=== PATIENT | female | born 1990 | race Caucasian/White ===

== ENCOUNTER 2016-03-23 12:44 | Emergency (ER) | payer OTHER ==
[~2016-03-23] VITALS: Ht 167.6 cm; Wt 80.0 kg
[2016-03-23 12:50] VITALS: Ht 167.6 cm; Wt 80.0 kg
[2016-03-23] MEDS ORDERED: ALBUTEROL 0.5% (NEB) 2.5 MG/0.5 ML AMP NEB STA (13:47)
[2016-03-23 14:06] LABS: URINE BLOOD (Dip) POC Trace-intact (NEGATIVE)
--- NOTE | 2016-03-23 14:42 | RADRPT ---
PROCEDURE: Chest Radiograph. CLINICAL INDICATION: Cough TECHNIQUE: Single frontal chest radiograph. COMPARISON: None available FINDINGS: The cardiomediastinal silhouette is within normal limits. No infiltrate or effusion is seen. Th e bones are intact. IMPRESSION: 1. Unremarkable chest radiograph. RPTAT: KK .Soy Delgadillo MD, Date Time Electronically viewed and signed by .Soy Delgadillo MD, on 03/23/2016 14:42 .B/
[2016-03-23] MEDS ORDERED: NITR-58 PO (14:54)
[2016-03-23] MEDS ORDERED: BENZ100C70 PO (14:54)
[2016-03-23] MEDS ORDERED: ALBU18HF INHALATION (14:54)
[2016-03-23] MEDS ORDERED: IBUP-1542 PO (14:54)
--- NOTE | 2016-03-23 15:07 | ERD ---
ER Documentation Chief Complaint Date/Time DATE: 03/23/16 TIME: 15:03 Chief Complaint syncopy with fever HPI This is a 25-year-old female presenting to the emergency room stating that she feels like she has a high fever for the past couple days. Patient states that she has cough, congestion. Patient states that yesterday she was in the shower and she felt like she was in the past out, she states that it felt like it was black and she lowered herself. Patient states that when she got out of the shower she fell and states she passed out first couple seconds. Patient denies any nausea, vomiting, lethargy. She denies any current dizziness. Patient states that she has painful urination and cloudy urine today. She denies any hematuria, flank pain. Patient's mother states that she has given her daughter Cipro and Tylenol this morning at 3:00 in the morning because she thought she had a fever. ROS All systems reviewed and are negative except as per history of present illness. Medications Home Meds Active Scripts Albuterol Sulfate* (Ventolin HFA*) 18 Gm Hfa.aer.ad, 2 PUFF INHALATION Q4H, #1 INHALER Prov:ELIZA GALVANC 03/23/16 Benzonatate* (Tessalon Perle*) 100 Mg Capsule, 100 MG PO Q8H Y for COUGH, #14 CAP Prov:ELIZA GALVANC 03/23/16 Nitrofurantoin Monohyd Macrocr* (Macrobid*) 100 Mg Capsr, 100 MG PO BID for 5 Days, CAP Prov:ELIZA GALVANC 03/23/16 Ibuprofen* (Motrin*) 600 Mg Tab, 600 MG PO Q6H Y for PAIN AND OR ELEVATED TEMP, #30 TAB Prov:ELIZA GALVAN PA-C 03/23/16 Allergies Allergies: Coded Allergies: No Known Allergy (Unverified , 03/23/16) PMhx/Soc Medical and Surgical Hx: pt denies Medical Hx, pt denies Surgical Hx Hx Alcohol Use: Yes Hx Substance Use: No Hx Tobacco Use: No Smoking Status: Never smoker Physical Exam Vitals Vital Signs Date Time Temp Pulse Resp B/P Pulse Ox O2 Delivery O2 Flow Rate FiO2 1/12/17 14:38 88 20 96 21 03/23/16 14:09 90 20 96 21 03/23/16 12:50 98.4 90 20 131/68 99 Physical Exam Const: Well-developed well-nourished Head: Atraumatic GENERAL: well-developed/well-nourished, in no apparent distress, non-toxic appearing HENT: NC/AT, bilateral tympanic membrane is normal with good cone of light, nares patent, oropharynx clear without exudates EYES: Conjunctiva normal, PERRLA, EOMI, no nystagmus noted NECK: Supple, no lymphadenopathy PULM: mild wheezing bilaterally CV: Normal S1S2, RRR, good capillary refill GI: Soft, non-distended, normal bowel sounds, non-tender BACK: No midline tenderness, no masses, No CVAT EXT: No clubbing, cyanosis, or edema NEURO: Alert and orientated to person, place, and time. CN II-IIX intact. Gait and coordination were normal. 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 and within normal limits SKIN: Intact, normal turgor PSYCH: Normal mood and mentation, patient denied SI Results 24 hrs Laboratory Tests Test 03/23/16 14:06 Bedside Urine Blood Trace-intact Bedside Urine Glucose (UA) Negative Bedside Urine Ketones (LAB) Negative Bedside Urine Leukocyte Esterase (L Trace Bedside Urine Nitrite (LAB) Negative Bedside Urine Protein (LAB) 1+ Bedside Urine pH (LAB) 5.5 Current Medications Medications (Trade) Dose Ordered Sig/Pat Route PRN Reason Start Time Stop Time Status Last Admin Dose Admin Albuterol (Proventil 0.5% (Neb)) 5 mg ONCE STAT NEB 03/23/16 13:47 03/23/16 13:48 DC 03/23/16 14:07 Procedures/MDM This is a 25-year-old female presenting to the emergency room complaining of painful urination, fever, cough for the past two days. Patient also complains of a syncopal episode yesterday, due to physical examination it is likely that this could be a vasovagal response. But I have considered other causes of syncope including cardiopulmonary, reflex. On examination patient was afebrile, she appears well and had a normal neurological exam. Patient did have mild wheezing on examination therefore RT was consulted and patient was given a breathing treatment with 5 mg of albuterol. I have reassessed patient and wheezing was improved. Patient was speaking clearly and ambulating well. There was no evidence of respiratory distress. A urine dipstick was done and it showed trace leukocyte esterase therefore patient will be empirically treated for urinary tract infection. Chest x-ray did not show any evidence of infiltrates, pneumothorax or pleural effusion. Patient appears well with stable vital signs. She is suitable to follow-up with her primary care physician. A prescription for Macrobid, Ventolin, ibuprofen and Tessalon Perles was provided. Patient stable for discharge with precautions to return to the ER for any worsening signs or symptoms. Patient mother understand and agree with plan Departure Diagnosis: Primary Impression: UTI (urinary tract infection) Urinary tract infection type: acute cystitis Hematuria presence: without hematuria Qualified Code: N30.00 - Acute cystitis without hematuria Additional Impressions: URI (upper respiratory infection) URI type: unspecified viral URI Qualified Code: J06.9 - Viral upper respiratory tract infection Syncope Syncope type: unspecified Qualified Code: R55 - Syncope, unspecified syncope type Condition: Stable Patient Instructions: Understanding Urinary Tract Infections (UTIs), Syncope, Unk Cause, Uri, Viral W/ Wheezing (Adult) Additional Instructions: FOLLOW UP WITH YOUR PRIMARY CARE PHYSICIAN TOMORROW.Return to this facility if you are not improving as expected. Take all medicines as directed. Return to this facility if you are not improving as expected. ELIZA GALVAN PA-C Mar 23, 2016 15:07
[2016-03-23 15:09] VITALS: BP 128/72; PULSE 89; RESP 20; TEMP 98
== END 2016-03-23 15:10 | disposition home or self-care (01) ==
LOC: FTE 12:44
DX: N30.00 Acute cystitis without hematuria (principal); J06.9 Acute upper respiratory infection, unspecified; R55 Syncope and collapse
CPT/HCPCS: 71010; 81003; 94664; Z7502; Z7610